=== PATIENT | female | born 1945 | race Caucasian/White ===

== ENCOUNTER 2016-06-08 09:39 | Emergency (ER) | payer OTHER, MEDICARE ==
[~2016-06-08] VITALS: Ht 160 cm; Wt 78.0 kg
[~2016-06-08 09:39] MED LIST: ADULT LOW DOSE81 M1 PO; AMLODIPINE BES2.5 MG PO; ASPIRIN E.C.81 M1 PO; ATENOLOL25 M1 PO; ATENOLOL25 MG PO; ATENOLOL50 M1 PO; ATORVASTATIN CA10 MG PO; CIPRO500 MG PO; COLACE100 MG PO; COUMADIN,JANTOV10 MG PO; COUMADIN,JANTOVE5 MG PO; COZAAR100 MG PO; Cipro PO; Coreg PO; Cozaar PO; DILAUDID2 MG PO; HYDROCHLOROTH12.5 M1 PO; LANOXIN,DIGIT0.25 MG PO; LORTAB 7.5/51 TABLET PO; LOSARTAN POTAS100 MG PO; LOSARTAN POTASS50 MG PO; LOVENOX100 MG/1 M SC; LOVENOX80 MG/0.8 SC; NAPROSYN500 MG PO; NEXIUM40 MG PO; NORCO 5/3251 TABLET PO; Protonix PO; TORADOL10 MG PO; Tenormin PO; Tylenol Regular Stre PO; ULTRAM50 MG PO; VALIUM2 MG PO; Vicodin,Lortab 5/500 PO; ZOFRAN4 MG PO
[2016-06-08 10:48] LABS: HEMATOCRIT 37.6 % (36.0-46.0); MCH 28.4 PG (29.0-34.0); MCHC 31.9 G/DL (30.0-36.0); MCV 88.9 FL (83-99); MEAN PLAT.VOLUME 12.1 uM^3 (9.5-12.4); PLATELET COUNT 171 K/uL (156-360); RBC DIS.WIDTH-CV 13.9 % (11.8-14.6); RBC DIS.WIDTH-SD 44.4 % (39-53); RED BLOOD COUNT 4.23 M/uL (3.80-5.20); WHITE BLOOD COUNT 7.7 K/uL (4.1-10.2)
[2016-06-08 10:58] LABS: CHLORIDE 110 mEq/L (99-109); POTASSIUM 4.3 mEq/L (3.7-5.4); SODIUM 142 mEq/L (136-147)
[2016-06-08 11:01] LABS: GLUCOSE 104 mg/dL (70-99)
[2016-06-08 11:02] LABS: ANION GAP 10 MEQ/L (2-14)
[2016-06-08 11:03] LABS: TOTAL BILIRUBIN 0.5 mg/dL (0.0-1.0)
[2016-06-08 11:04] LABS: ALKALINE PHOSPHATASE 106 IU/L (3-129); GFR ESTIMATE (CALCULATED) 47 mL/min/
[2016-06-08 11:05] LABS: UREA NITROGEN (BUN) 25 mg/dL (9-23)
[2016-06-08 13:39] LABS: ADD MIUA? YES; BILIRUBIN NEGATIVE; BLOOD LARGE; COLOR DK YELLOW ((YELLOW)); GLUCOSE (STRIP) NEGATIVE; KETONES NEGATIVE; LEUKOCYTES MODERATE; NITRITE NEGATIVE; PH, URINE 5.5 (5-8); PROTEIN (STRIP) 30; SPECIFIC GRAVITY 1.024 (1.000-1.030); UROBILINOGEN 0.2 MG/DL (0.2-1.0)
[2016-06-08 14:05] LABS: RED BLOOD CELLS TNTC /HPF (0-5); UCUL ADDED? YES
[2016-06-08] MEDS ORDERED: MIRALAX255 GM PO (15:48)
[2016-06-08 16:23] VITALS: BP 146/80
== END 2016-06-08 16:25 | disposition home or self-care (01) ==
LOC: EME 09:39
DX: K59.00 Constipation, unspecified (principal); R31.9 Hematuria, unspecified; Z87.442 Personal history of urinary calculi; Z91.013 Allergy to seafood
CPT/HCPCS: 74176; 80053; 81003; 85027; 87086; J1885; J7030

== ENCOUNTER 2016-08-15 13:57 | Observation (INO) | payer OTHER, MEDICARE ==
[~2016-08-15] VITALS: Ht 160 cm; Wt 75.0 kg
[~2016-08-15 13:57] MED LIST changes: +MIRALAX255 GM PO
[2016-08-15 15:06] LABS: HEMATOCRIT 38.1 % (36.0-46.0); MCH 27.3 PG (29.0-34.0); MCHC 30.7 G/DL (30.0-36.0); MCV 88.8 FL (83-99); MEAN PLAT.VOLUME 11.6 uM^3 (9.5-12.4); PLATELET COUNT 244 K/uL (156-360); RBC DIS.WIDTH-CV 14.1 % (11.8-14.6); RBC DIS.WIDTH-SD 45.6 % (39-53); RED BLOOD COUNT 4.29 M/uL (3.80-5.20); WHITE BLOOD COUNT 7.5 K/uL (4.1-10.2)
[2016-08-15 15:22] LABS: CHLORIDE 108 mEq/L (99-109); POTASSIUM 3.7 mEq/L (3.7-5.4); SODIUM 144 mEq/L (136-147)
[2016-08-15 15:24] LABS: GLUCOSE 130 mg/dL (70-99)
[2016-08-15 15:25] LABS: ANION GAP 10 MEQ/L (2-14); TROP-I INTERPRETATION NEGATIVE; TROPONIN-I < 0.01 ng/mL (0.0-0.30)
[2016-08-15 15:27] LABS: ALKALINE PHOSPHATASE 88 IU/L (3-129)
[2016-08-15 15:28] LABS: GFR ESTIMATE (CALCULATED) 47 mL/min/
[2016-08-15 15:29] LABS: DIRECT BILIRUBIN 0.4 mg/dL (0.0-0.3); UREA NITROGEN (BUN) 18 mg/dL (9-23)
[2016-08-15 15:31] LABS: LIPASE 11 U/L (1.0-51.0)
[2016-08-15 16:53] LABS: ADD MIUA? YES; BILIRUBIN NEGATIVE; BLOOD MODERATE; COLOR YELLOW ((YELLOW)); GLUCOSE (STRIP) NEGATIVE; KETONES NEGATIVE; LEUKOCYTES LARGE; NITRITE NEGATIVE; PROTEIN (STRIP) 30; SPECIFIC GRAVITY 1.014 (1.000-1.030); UROBILINOGEN 0.2 MG/DL (0.2-1.0)
[2016-08-15 17:13] LABS: BACTERIA RARE /HPF; EPITHELIAL CELLS 1+ /HPF; MUCUS NONE SEEN /LPF; UCUL ADDED? YES; WHITE BLOOD CELLS TNTC /HPF (0-5)
[2016-08-15 17:14] LABS: CASTS PRESENT /LPF; CRYSTALS NONE SEEN; HYALINE CASTS RARE /LPF
[2016-08-15 17:15] LABS: URINE COMMENT BUDDING YEAST 3+
[2016-08-15] MEDS ORDERED: ELIQUIS5 MG PO (17:44)
[2016-08-15 21:00] VITALS: BP 125/60
[2016-08-15 22:56] LABS: TROP-I INTERPRETATION NEGATIVE; TROPONIN-I < 0.01 ng/mL (0.0-0.30)
[2016-08-16] VITALS: BP 124/60
[2016-08-16 05:00] VITALS: BP 120/59
[2016-08-16 05:36] LABS: TROP-I INTERPRETATION NEGATIVE; TROPONIN-I < 0.01 ng/mL (0.0-0.30)
[2016-08-16 05:45] LABS: HDL CHOLESTEROL 38 MG/DL (Desirable>=50); LDL CHOLESTEROL 69 mg/dL (Desirable<100); NON-HDL CHOLESTEROL 82 mg/dL (Desirable<160); TOTAL CHOLESTEROL 120 mg/dL (Desirable<200); TRIGLYCERIDES 66 MG/DL (Normal: <150)
[2016-08-16 08:15] VITALS: BP 128/61
[2016-08-16] MEDS ORDERED: ASPIR-LOW81 MG PO (11:21)
[2016-08-16 12:01] VITALS: BP 136/66
== END 2016-08-16 13:59 | disposition home or self-care (01) ==
LOC: EME 13:57 → EDOF 19:33 → 5WEST 19:33
PROVIDERS: Physician Assistant; Physician Assistant Medical
DX: R07.89 Other chest pain (principal); R94.31 Abnormal electrocardiogram [ECG] [EKG]; I48.0 Paroxysmal atrial fibrillation; I12.9 Hypertensive chronic kidney disease with stage 1 through stage 4 chronic kidney disease, or unspecified chronic kidney disease; N18.3 Chronic kidney disease, stage 3 (moderate); I51.7 Cardiomegaly; I27.2 Other secondary pulmonary hypertension; E78.5 Hyperlipidemia, unspecified; R13.10 Dysphagia, unspecified; K21.9 Gastro-esophageal reflux disease without esophagitis; Z79.01 Long term (current) use of anticoagulants; Z86.711 Personal history of pulmonary embolism; Z86.718 Personal history of other venous thrombosis and embolism
CPT/HCPCS: 71020; 71275; 80048; 80061; 80076; 81003; 83690; 84484; 85027; 87086; 93005; 99281; 99285; G0378; J2405; J7030; J7040

== ENCOUNTER 2017-05-06 11:19 | Observation (INO) | payer OTHER, MEDICARE ==
[~2017-05-06] VITALS: Ht 160 cm; Wt 61.3 kg
[~2017-05-06 11:19] MED LIST changes: +ASPIR-LOW81 MG PO; -ATENOLOL25 MG PO; +ATENOLOL50 MG PO; +ELIQUIS5 MG PO
[2017-05-06 12:30] LABS: BASOPHIL COUNT 0.1 K/uL (0-0.1); EOSINOPHIL (%) 0.3 % (0-5); HEMATOCRIT 37.1 % (36.0-46.0); IMMATURE GRANULOCYTE (%) 0.7 % (0.0-0.7); IMMATURE GRANULOCYTE COUNT 0.1 K/uL; LYMPHOCYTE COUNT 0.9 K/uL (1.0-2.8); MCH 27.8 PG (29.0-34.0); MCHC 31.3 G/DL (30.0-36.0); MCV 88.8 FL (83-99); MEAN PLAT.VOLUME 11.4 uM^3 (9.5-12.4); MONOCYTE (%) 6.1 % (3-12); MONOCYTE COUNT 0.7 K/uL (0-0.8); NEUTROPHIL (%) 83.9 % (45-76); PLATELET COUNT 229 K/uL (156-360); RBC DIS.WIDTH-CV 16.2 % (11.8-14.6); RBC DIS.WIDTH-SD 52.6 % (39-53); RED BLOOD COUNT 4.18 M/uL (3.80-5.20); WHITE BLOOD COUNT 10.7 K/uL (4.1-10.2)
[2017-05-06 12:41] LABS: CHLORIDE 102 mEq/L (99-109); POTASSIUM 4.1 mEq/L (3.7-5.4); SODIUM 141 mEq/L (136-147)
[2017-05-06 12:42] LABS: GLUCOSE 122 mg/dL (70-99)
[2017-05-06 12:44] LABS: ANION GAP 13 MEQ/L (2-14)
[2017-05-06 12:46] LABS: GFR ESTIMATE (CALCULATED) > 59 mL/min/
[2017-05-06 12:47] LABS: UREA NITROGEN (BUN) 11 mg/dL (9-23)
[2017-05-06 12:51] LABS: TROP-I INTERPRETATION NEGATIVE; TROPONIN-I < 0.01 ng/mL (0.0-0.30)
[2017-05-06] MEDS ORDERED: BESIVANCE5 ML LEFT EYE (14:51)
[2017-05-06] MEDS ORDERED: PREDNISOLONE AC15 ML LEFT EYE (14:51)
[2017-05-06] MEDS ORDERED: PROLENSA3 ML LEFT EYE (14:52)
[2017-05-06] MEDS ORDERED: COMPAZINE10 MG PO (14:53)
[2017-05-06 15:40] LABS: LACTATE DEHYDROGENASE 214 IU/L (20-246)
[2017-05-06 15:53] VITALS: BP 123/66
[2017-05-06 17:41] LABS: EPITHELIAL CELLS RARE /HPF; RED BLOOD CELLS TNTC /HPF (0-5); WHITE BLOOD CELLS 20-30 /HPF (0-5)
[2017-05-06 17:42] LABS: BACTERIA 1+ /HPF; CASTS NONE SEEN /LPF; CRYSTALS NONE SEEN; MUCUS RARE /LPF
[2017-05-06 19:45] VITALS: BP 122/58
[2017-05-06 23:45] VITALS: BP 122/80
[2017-05-07 05:00] VITALS: BP 118/75
[2017-05-07 05:37] LABS: HEMATOCRIT 29.9 % (36.0-46.0); MCH 26.8 PG (29.0-34.0); MCHC 29.8 G/DL (30.0-36.0); MCV 90.1 FL (83-99); MEAN PLAT.VOLUME 11.2 uM^3 (9.5-12.4); PLATELET COUNT 199 K/uL (156-360); RBC DIS.WIDTH-CV 16.1 % (11.8-14.6); RBC DIS.WIDTH-SD 53.3 % (39-53); RED BLOOD COUNT 3.32 M/uL (3.80-5.20); WHITE BLOOD COUNT 10.1 K/uL (4.1-10.2)
[2017-05-07 06:35] LABS: ANION GAP 9 MEQ/L (2-14); CHLORIDE 108 MEQ/L (99-109); GFR ESTIMATE (CALCULATED) > 59 mL/min/; POTASSIUM 3.9 MEQ/L (3.7-5.4); SAMPLE HEMOLYSIS CHECK 0; SAMPLE ICTERIC CHECK 0; SAMPLE LIPEMIA CHECK 0; SODIUM 142 MEQ/L (136-147); UREA NITROGEN (BUN) 11 mg/dL (9-23)
[2017-05-07 06:36] LABS: GLUCOSE 78 mg/dL (70-99)
[2017-05-07 09:02] VITALS: BP 139/65
[2017-05-07 11:11] VITALS: BP 127/58
[2017-05-07] MEDS ORDERED: CEFTIN500 MG PO (13:02)
[2017-05-07] MEDS ORDERED: LOPRESSOR25 MG PO (13:03)
[2017-05-07 15:29] LABS: ADD MIUA? YES; BILIRUBIN NEGATIVE; BLOOD LARGE; COLOR YELLOW ((YELLOW)); GLUCOSE (STRIP) NEGATIVE; KETONES NEGATIVE; LEUKOCYTES MODERATE; NITRITE NEGATIVE; PROTEIN (STRIP) NEGATIVE; SPECIFIC GRAVITY 1.004 (1.000-1.030); UROBILINOGEN 0.2 MG/DL (0.2-1.0)
[2017-05-07 15:42] LABS: CASTS NONE SEEN /LPF; EPITHELIAL CELLS 1+ /HPF; MUCUS TRACE /LPF
[2017-05-07 15:43] LABS: BACTERIA 1+ /HPF; RED BLOOD CELLS TNTC /HPF (0-5); UCUL ADDED? YES; WHITE BLOOD CELLS 0-5 /HPF (0-5)
== END 2017-05-07 15:52 | disposition home or self-care (01) ==
LOC: EME → EDBD 11:19 → EME 11:19 → EDOF 13:49 → 4EAST 13:49 → ENRESERV 13:53 → 4EAST 15:46 → ENPENDDIS 05-07 → 4EAST 05-07 15:52
PROVIDERS: Emergency Medicine; Family Medicine
DX: I48.0 Paroxysmal atrial fibrillation (principal); I95.9 Hypotension, unspecified; Z79.01 Long term (current) use of anticoagulants; Z86.711 Personal history of pulmonary embolism; I12.9 Hypertensive chronic kidney disease with stage 1 through stage 4 chronic kidney disease, or unspecified chronic kidney disease; N18.3 Chronic kidney disease, stage 3 (moderate); R31.0 Gross hematuria; N20.0 Calculus of kidney; D18.02 Hemangioma of intracranial structures; Z87.442 Personal history of urinary calculi; E78.00 Pure hypercholesterolemia, unspecified; Z92.3 Personal history of irradiation; Z90.710 Acquired absence of both cervix and uterus; D72.829 Elevated white blood cell count, unspecified; Z98.890 Other specified postprocedural states; Z91.013 Allergy to seafood; Z88.8 Allergy status to other drugs, medicaments and biological substances
CPT/HCPCS: 70450; 71010; 80048; 81003; 81015; 83615; 84484; 85025; 85027; 87086; 92610 GN; 93005; 99281; 99285; G0378; J1160; J7030; Q0164